=== PATIENT | female | born 1980 | race Caucasian/White ===

== ENCOUNTER 2016-08-29 15:46 | Emergency (ER) | payer OTHER ==
[~2016-08-29] VITALS: Ht 157.5 cm; Wt 55.5 kg
[2016-08-29 15:59] VITALS: BP 113/77; PULSE 85; RESP 16; O2SAT 99
[2016-08-29 17:19] LABS: APPEARANCE,URINE CLEAR (CLEAR,HAZY); COLOR,URINE STRAW (YELLOW); OCCULT BLOOD,URINE NEGATIVE (NEGATIVE); UROBILINOGEN,URINE NORMAL (NORMAL)
[2016-08-29 17:29] LABS: BASOPHILS % (AUTO) 0.2 % (0-3); EOSINOPHILS % (AUTO) 2.4 % (0-5); MONOCYTES % (AUTO) 7.1 % (4-12); Mean Corpuscular Hemoglobin 28.9 pg (27.0-35.0); Mean Corpuscular Volume 90.1 fL (81-100); Platelet Count 263 bil/L (150-400)
[2016-08-29 17:59] LABS: Magnesium 2.2 mg/dL (1.6-2.6)
--- NOTE | 2016-08-29 18:32 | ED.REPORT ---
HPI-Abd Pain F Under 41 Date of Service Aug 29, 2016 ED Provider: Avelino Banuelos MD The pt is healthy 36 y/o female presenting to the ED with RLQ abdominal pain onset 6 days ago. The pain began when she was doing situps with weight on a decline bench when she heard something "pop". She has been experiencing stabbing pain since then and feels "tight" in her RLQ. Her eating, drinking, and bowel movements have all been normal. Her LMP was two weeks ago and normal. She denies vaginal discharge, dysuria, masses and abnormal vaginal bleeding. She reports having a cholecystectomy in the past. Her PCP is [facility] but she has not been there for two years. She takes Gabapentin for fibromyalgia. Nursing Notes Stated Complaint: LOWER RIGHT ABD PAIN Chief Complaint: Female Abdominal Pain Nursing Notes Reviewed: Yes Allergies: Coded Allergies: No Known Allergies (Unverified , 08/29/16) General Time Seen by MD: 17:41 Chief Complaint Abdominal pain Hx Obtained From: Patient Arrived By: Walk-in Sudden in Onset?: Yes Onset Occurred: 1 week ago Symptom Duration: Since onset Progression since Onset: Constant Location: : RLQ Quality: Stabbing Radiation: : Does not radiate Severity: Current: Mild Severity: Maximum: Severe Recent Healthcare: No recent doctor visit Similar Sx Previous: No Past Medical History Past Medical History Fibromyalgia Past Surgical History Reports: Cholecystectomy Smoking History Unknown if Ever Smoker Ambulatory Status Independent Review of Systems GI: Reports: Abdominal pain, Denies: Constipation, Diarrhea Female: Denies: Dysuria, Vaginal bleeding - abnl, Vaginal discharge Complete sys rev & neg: except as marked. Physical Exam Initial Vital Signs Vital Signs (First) Date Time Temp Pulse Resp B/P Pulse Ox O2 Delivery O2 Flow Rate FiO2 08/29/16 15:59 36.7 85 16 113/77 99 Room Air Initial VS: Reviewed, Vital signs normal Head / Eyes: Atraumatic, Normocephalic, PERRL ENT: Mucous membranes moist, Conjunctiva normal, No scleral icterus Neck: Supple, Full range of motion Extremities: Vascular intact, Neuro intact, No swelling, No tenderness Skin: Warm, Dry, No cyanosis Neurologic: Alert, Oriented, Nonfocal Psychiatric: Mood/affect normal, Behavior normal, Normal thought content General/Constitutional: Awake, Alert, No acute distress, Well appearing, Cooperative, Not toxic appearing Respiratory / Chest: Breath sounds NL, Breath sounds = bilat, No respiratory distress, No rales, No rhonchi, No wheezing, No retractions Cardiovascular: Heart rate NL, Regular rhythm, Heart sounds NL, No gallop, No murmurs, No rubs, Peripheral circulation NL Abdomen: Atraumatic, Soft, No guarding, No rebound, BS normoactive, No distention, No palpable mass Tenderness/Guarding/Rebound: Positive: Tender epigastric Back: Full range of motion, Painless range of motion Interpretation & Diagnostics Lab Results Interpretation Result Diagram: 08/29/16 1705 08/29/16 1705 Test 08/29/16 16:15 08/29/16 17:05 Urine Color Straw (YELLOW) Urine Appearance Clear (CLEAR,HAZY) Urine pH 6.0 (5.0-8.0) Urine Specific [place] 1.005 (1.003-1.035) Urine Protein Negativemg/dL (NEG,TRACE) Urine Glucose (UA) Negativemg/dL (NEGATIVE) Urine Ketones Negativemg/dL (NEGATIVE) Urine Occult Blood Negative (NEGATIVE) Urine Nitrite Negative (NEGATIVE) Urine Bilirubin Negative (NEGATIVE) Urine Urobilinogen Normalmg/dL (NORMAL) Urine Leukocyte Esterase Negative (NEGATIVE) Urine RBC 0-2/hpf (0-2) Urine WBC 0-5/hpf (0-5) Urine Epithelial Cells Occasional/hpf (NONE-MOD) Urine Crystals None seen (NONE SEEN) Urine Bacteria None/hpf (NONE-FEW) Urine Hyaline Casts None/lpf (NONE) Urine Granular Casts None seen (NONE SEEN) Urine Waxy Casts None seen (NONE SEEN) Urine Red Blood Cell Casts None seen (NONE SEEN) Urine White Blood Cell Casts None seen (NONE SEEN) Urine Mucus None seen (None Seen) Urine Trichomonas None seen (NONE SEEN) Urine Yeast None (NONE SEEN) Urine Culture Reflexed Not indicated White Blood Count 8.2th/mm3 (3.8-10.1) Red Blood Count 4.84mil/mm3 (3.90-5.20) Hemoglobin 14.0g/dL (12.0-15.6) Hematocrit 43.6% (35.0-46.0) Mean Corpuscular Volume 90.1fL (81-100) Mean Corpuscular Hemoglobin 28.9pg (27.0-35.0) Mean Corpuscular Hemoglobin Concent 32.1% (32.0-37.0) Red Cell Distribution Width 13.4% (12.3-15.4) Platelet Count 263bil/L (150-400) Neutrophils (%) (Auto) 60.0% (40-74) Lymphocytes (%) (Auto) 30.2% (14-46) Monocytes (%) (Auto) 7.1% (4-12) Eosinophils (%) (Auto) 2.4% (0-5) Basophils (%) (Auto) 0.2% (0-3) Sodium Level 138mEq/L (134-144) Potassium Level 4.5mEq/L (3.5-5.2) Chloride Level 103mEq/L (97-108) Carbon Dioxide Level 22mmol/L (18-29) Blood Urea Nitrogen 4mg/dL (6-20) Creatinine 0.62mg/dL (0.57-1.00) Estimat Glomerular Filtration Rate 157mL/min (>59) Glucose Level 74mg/dL (60-99) Calcium Level 9.9mg/dL (8.5-10.1) Magnesium Level 2.2mg/dL (1.6-2.6) Total Bilirubin 0.3mg/dL (0.0-1.2) Aspartate Amino Transf (AST/SGOT) 14U/L (0-50) Alanine Aminotransferase (ALT/SGPT) 7U/L (0-32) Alkaline Phosphatase 51U/L (25-150) Total Protein 7.6g/dL (6.4-8.4) Albumin 4.7g/dL (3.4-5.0) Lipase 19U/L (13-60) Hold Smith Top Tube Received (Received) Re-Eval/Medical Decision Re-Evaluation/Progress : Time of Eval: 18:48 Re-Evaluation/Progress Note: Pt rechecked. Informed pt of plan for treatment. Pt understands and agrees with plan for treatment. F/U instructions and RTER warnings given. All questions addressed. Counseled Regarding: Diagnosis, Lab results, Need for follow-up, When/why to return to ED Discharge & Departure Primary Impression: Abdominal muscle strain Encounter type: initial encounter Qualified Code: S39.011A - Strain of muscle, fascia and tendon of abdomen, initial encounter Disposition: Home Discharge Condition All VS Reviewed: Yes Condition: Stable Patient Instructions: Acute Abdominal Pain (ED), Muscle Strain (ED) Additional Instructions: Emergency Department evaluation included interview, examination and labs. History is suggestive of muscle strain. Labs and examination do not suggest a serious medical problem causing abdominal pain. Ice to sore areas, as frequently as helpful. Keep ice pack wrapped to prevent direct skin contact. Ibuprofen 600 mg every 6-8 hours as needed for pain. Return to emergency department for increasing pain frequent vomiting or fever. Referrals: Roberta Araujo DO (PCP) Scribe Attestation Portions of this note were transcribed by Madi Orozco and Dyllan Jose. I, Dr. Banuelos personally performed the history, physical exam and medical decision- making; I reviewed and confirmed the accuracy of the information in the transcribed note. Signed by: Ramón Lambert, 08/29/16 19:02. copies to: Roberta Araujo Donald L MD Aug 29, 2016 18:31 Madi Orozco Aug 29, 2016 18:42 DYLLAN JOSE Aug 29, 2016 19:16
== END 2016-08-29 18:53 | disposition home or self-care (01) ==
LOC: SED 15:46
DX: S39.011A Strain of muscle, fascia and tendon of abdomen, initial encounter (principal); X50.3XXA Overexertion from repetitive movements, initial encounter; Y93.B2 Activity, push-ups, pull-ups, sit-ups; Y92.9 Unspecified place or not applicable; Y99.8 Other external cause status